=== PATIENT | male | born 1965 | race Caucasian/White ===

== ENCOUNTER 2020-06-13 12:42 | Emergency (ER) | payer MEDICARE, MEDICAID ==
[~2020-06-13] VITALS: Ht 160 cm; Wt 72.7 kg
[2020-06-13 13:37] VITALS: Ht 160 cm; Wt 72.7 kg
[2020-06-13] MEDS ORDERED: CELEXA10 MG PO (13:39)
[2020-06-13] MEDS ORDERED: TEGRETOL 100 M100 MG PO ×2 (13:40→13:41)
[2020-06-13] MEDS ORDERED: ZOFRAN4 MG PO (13:41)
[2020-06-13 16:23] VITALS: BP 124/73
== END 2020-06-13 16:23 | disposition home or self-care (01) ==
LOC: D.ER 12:42
DX: S09.90XA Unspecified injury of head, initial encounter (principal); W22.8XXA Striking against or struck by other objects, initial encounter; Y93.9 Activity, unspecified; Y92.9 Unspecified place or not applicable; Q90.9 Down syndrome, unspecified; S00.03XA Contusion of scalp, initial encounter

== ENCOUNTER → 2020-11-25 14:24 | Outpatient (CLI) | payer MEDICARE, OTHER ==
[2020-10-26 09:24] VITALS: BMI 26.2
[~2020-11-25 14:24] MED LIST: ACETAMINOPHEN500 M1 PO; CELEXA10 MG PO; IBUPROFEN800 MG PO; TEGRETOL 100 M100 MG PO; ZOFRAN4 MG PO
== END | disposition home or self-care (01) ==
LOC: D.CT 14:24
PROVIDERS: ATTEND Nurse Practitioner Family
DX: S09.90XA Unspecified injury of head, initial encounter (principal)